=== PATIENT | female | born 1950 | race Caucasian/White ===

== ENCOUNTER 2021-09-13 09:37 | Outpatient (CLI) | payer MEDICARE ==
[2021-09-13 10:43] LABS: Anion Gap 14 mmol/L (10-20); BUN (Urea Nitrogen) 19 mg/dL (9.8-20.1); Calc. Creatinine Clearance 0 mL/min (70-130); Calcium 9.2 mg/dL (7.8-10.44); Carbon Dioxide 25 mmol/L (23-31); Chloride 102 mmol/L (98-107); Estimated GFR 65; Glucose 162 mg/dL (80-115); Potassium 4.1 mmol/L (3.5-5.1); Sodium 137 mmol/L (136-145)
== END 2021-09-13 09:38 | disposition home or self-care (01) ==
LOC: LABBT 09:37
PROVIDERS: ATTEND Neurological Surgery
DX: Z01.812 Encounter for preprocedural laboratory examination (principal); M43.16 Spondylolisthesis, lumbar region; Z20.822 Contact with and (suspected) exposure to COVID-19
CPT/HCPCS: 80048; 87811; 93005; 93010

== ENCOUNTER 2021-09-16 06:17 | Day surgery (SDC) | payer MEDICARE ==
[2021-09-15 10:15] VITALS: BMI 46.5
[2021-09-16] MEDS ORDERED: Levofloxacin 500 mg/D5W 100 ml Premix Bag ONE (08:12)
[2021-09-16] MEDS ORDERED: Bupivacaine PF 0.5% 30 ML VIAL ONE (08:32)
[2021-09-16] MEDS ORDERED: EPINEPHrine 1 MG/ML AMP ONE (08:32)
[2021-09-16] MEDS ORDERED: Sodium Chloride 0.9% 0 ML ONE (08:47)
[2021-09-16] MEDS ORDERED: Clindamycin/D5W 900 mg/50 ml Premix Bag ONE (08:47)
[2021-09-16] MEDS ORDERED: CEFAZOLIN 2 GM VIAL ONE (08:47)
[2021-09-16] MEDS ORDERED: fentaNYL Citrate/PF 100 MCG/2 ML SYRINGE ONE (08:54)
[2021-09-16] MEDS ORDERED: PROPOFOL 200 MG/20 ML VIAL ONE (08:59)
[2021-09-16] MEDS ORDERED: Dexamethasone 20 MG/5 ML VIAL ONE (08:59)
[2021-09-16] MEDS ORDERED: Lidocaine 1% PF 5 ML VIAL ONE (08:59)
[2021-09-16] MEDS ORDERED: ePHEDrine 50 MG/ML VIAL ONE (08:59)
[2021-09-16] MEDS ORDERED: Rocuronium Bromide 10 MG/ML (10ML VIAL) ONE (08:59)
[2021-09-16] MEDS ORDERED: Glycopyrrolate 0.2 MG/ML 5 ML SYRINGE ONE (08:59)
[2021-09-16] MEDS ORDERED: Fentanyl 100 MCG/2 ML VIAL ONE ×2 (12:17→12:28)
[2021-09-16] MEDS ORDERED: HYDROcodone/Acetaminophen 5/325 mg Tablet ONE (14:10)
== END 2021-09-16 15:25 | disposition home or self-care (01) ==
LOC: SDC 06:17
PROVIDERS: ATTEND Neurological Surgery
PROC: 0SG0071 Fusion of Lumbar Vertebral Joint with Autologous Tissue Substitute, Posterior Approach, Posterior Column, Open Approach (ICD-10-PCS; principal; 2021-09-16)
PROC: 0ST20ZZ Resection of Lumbar Vertebral Disc, Open Approach (ICD-10-PCS; 2021-09-16)
DX: M43.16 Spondylolisthesis, lumbar region (principal); M54.16 Radiculopathy, lumbar region; M48.061 Spinal stenosis, lumbar region without neurogenic claudication; I10 Essential (primary) hypertension; Z79.899 Other long term (current) drug therapy; Z88.0 Allergy status to penicillin; Z88.8 Allergy status to other drugs, medicaments and biological substances; Z91.048 Other nonmedicinal substance allergy status
CPT/HCPCS: 20930; 20936; 22612; 22853; 63042; 76000; C1713 ×3; C1768; J0171; J0690; J1100; J1956; J2704; J2710; J3010; J3490; S0020

== ENCOUNTER 2022-11-15 06:22 | Day surgery (SDC) | payer MEDICARE ==
[2022-11-10 12:16] VITALS: BMI 45.6
[2022-11-15] MEDS ORDERED: Thrombin 5000 UNITS/5 ML VIAL ONE (06:35)
[2022-11-15] MEDS ORDERED: Bupivacaine PF 0.5% 30 ML VIAL ONE (06:35)
[2022-11-15] MEDS ORDERED: EPINEPHrine 1 MG/ML AMP ONE (06:35)
[2022-11-15] MEDS ORDERED: LevoFLOXacin 500 mg/D5W 100 ML BAG ONE (07:17)
[2022-11-15] MEDS ORDERED: Clindamycin/D5W 900 mg/50 ml Premix Bag ONE (07:18)
[2022-11-15] MEDS ORDERED: fentaNYL 50 mcg/mL 1 mL Vial ONE ×2 (07:22→09:17)
[2022-11-15] MEDS ORDERED: SUGAMMADEX SODIUM 200 MG/2 ML VIAL ONE ×2 (07:22→09:24)
[2022-11-15 07:39] LABS: #Basophils 0.1 thou/uL (0.0-0.2); #Eosinphils 0.2 thou/uL (0.0-0.7); #Monocytes 0.8 thou/uL (0.11-0.59); #Neutrophils 4.1 thou/uL (1.40-6.50); %Basophils 0.8 % (0.0-1.0); %Eosinophils 3.3 % (0.0-10.0); %Lymphocytes 21.5 % (21.0-51.0); %Monocytes 11.9 % (0.0-10.0); Hematocrit 39.6 % (36.0-47.0); Hemoglobin 12.8 g/dL (12.0-16.0); Mean Corpuscular HGB CONC 32.3 g/dL (32.0-36.0); Mean Corpuscular Hemoglobin 30.2 pg (27.0-31.0); Mean Corpuscular Volume 93.4 fl (78.0-98.0); Mean Platelet Volume 9.4 fL (7.4-10.4); Platelet Count 175 10x3/uL (130-400); RBC Distribution Width 14.1 % (11.5-14.5); Red Blood Cell (RBC) Count 4.24 mill/uL (4.20-5.40); White Blood Cell (WBC) Count 6.6 10x3/uL (4.8-10.8)
[2022-11-15] MEDS ORDERED: Lidocaine 2% 6 ML (Jelly) SYR ONE (07:58)
[2022-11-15 08:01] LABS: Anion Gap 13 mmol/L (10-20); BUN (Urea Nitrogen) 26 mg/dL (9.8-20.1); Calc. Creatinine Clearance 114 mL/min (70-130); Calcium 10.1 mg/dL (7.8-10.44); Carbon Dioxide 28 mmol/L (23-31); Chloride 103 mmol/L (98-107); Estimated GFR 69; Glucose 107 mg/dL (83-110); Potassium 4.8 mmol/L (3.5-5.1); Sodium 139 mmol/L (136-145)
[2022-11-15] MEDS ORDERED: Dexamethasone 20 MG/5 ML VIAL ONE (08:10)
[2022-11-15] MEDS ORDERED: PHENYLEPHRINE-NS 100 MCG/ML 10 ML SYRINGE ONE (08:10)
[2022-11-15] MEDS ORDERED: Ondansetron PF 4 MG/2 ML Vial ONE (08:10)
[2022-11-15] MEDS ORDERED: PROPOFOL 200 MG/20 ML VIAL ONE (08:10)
[2022-11-15] MEDS ORDERED: Lidocaine 1% PF 5 ML VIAL ONE (08:10)
[2022-11-15] MEDS ORDERED: Rocuronium Bromide 10 MG/ML (10ML VIAL) ONE (08:10)
[2022-11-15] MEDS ORDERED: fentaNYL PF 100 MCG/2 ML SYRINGE ONE (09:52)
[2022-11-15] MEDS ORDERED: Ondansetron PF 4 MG/2 ML Vial IM PRN (10:24)
[2022-11-15] MEDS ORDERED: Acetaminophen/Codeine 30-300mg Tablet PO PRN ×2 (10:30)
[2022-11-15] MEDS ORDERED: Sodium Chloride 0.9% 1,000 ML IV SCH (10:30)
[2022-11-15] MEDS ORDERED: diphenhydrAMINE 50 MG/ML VIAL IVP PRN (10:30)
[2022-11-15] MEDS ORDERED: Morphine 4 MG/ML VIAL SLOW IVP PRN (10:30)
[2022-11-15] MEDS ORDERED: diphenhydrAMINE 25 MG CAP PO PRN (10:30)
[2022-11-15] MEDS ORDERED: Bisacodyl 10 MG SUPP PR PRN (10:30)
[2022-11-15] MEDS ORDERED: Acetaminophen 325 MG TAB PO PRN (10:30)
[2022-11-15] MEDS ORDERED: Mag-Al 1200 mg/1200 mg/30 ML UDCUP PO PRN (10:30)
[2022-11-15] MEDS ORDERED: Morphine 2 MG/ML VIAL SLOW IVP PRN (10:30)
[2022-11-15] MEDS ORDERED: Acetaminophen 650 MG Suppository PR PRN (10:30)
== END 2022-11-15 12:23 | disposition home or self-care (01) ==
LOC: SDC 06:22
PROVIDERS: ATTEND Neurological Surgery
PROC: 0SB20ZZ Excision of Lumbar Vertebral Disc, Open Approach (ICD-10-PCS; principal; 2022-11-15)
DX: M51.16 Intervertebral disc disorders with radiculopathy, lumbar region (principal); E78.5 Hyperlipidemia, unspecified; M19.90 Unspecified osteoarthritis, unspecified site; I10 Essential (primary) hypertension; Z90.710 Acquired absence of both cervix and uterus; Z90.49 Acquired absence of other specified parts of digestive tract; Z90.89 Acquired absence of other organs; Z79.899 Other long term (current) drug therapy; Z88.0 Allergy status to penicillin; Z88.8 Allergy status to other drugs, medicaments and biological substances; Z91.048 Other nonmedicinal substance allergy status
CPT/HCPCS: 63030; 80048; 85025; J3010; 36415; J0171; J1100; J1956; J2405; J2704; J3490; S0020